=== PATIENT | male | born 1995 ===

== ENCOUNTER → 2020-06-07 | Outpatient (CLI) | payer OTHER ==
[2020-06-07] VITALS (9 sets, daily range): BP systolic 121–142; BP diastolic 56–94; PULSE 51–69
[~2020-06-07] VITALS: Ht 182.9 cm; Wt 107.0 kg
== END ==
LOC: COL.RAD 11:54
DX: N13.0 Hydronephrosis with ureteropelvic junction obstruction (principal); I89.8 Other specified noninfective disorders of lymphatic vessels and lymph nodes